=== PATIENT | female | born 1965 | race Caucasian/White ===

== ENCOUNTER 2018-10-03 19:56 | Emergency (ER) | payer OTHER ==
[~2018-10-03] VITALS: Ht 160 cm; Wt 91.0 kg
[2018-10-03] MEDS ORDERED: ONDANSETRON HCL 4MG TABLET PO ONE (21:45)
[2018-10-03] MEDS ORDERED: HYDROCODONE/ACETAMINOPHEN 5/325MG TABLET PO ONE (21:45)
[2018-10-03 23:12] VITALS: BP 134/81
== END 2018-10-03 23:12 | disposition home or self-care (01) ==
LOC: ER 21:52
DX: M25.531 Pain in right wrist (principal); W01.0XXA Fall on same level from slipping, tripping and stumbling without subsequent striking against object, initial encounter; Y93.89 Activity, other specified; Y92.018 Other place in single-family (private) house as the place of occurrence of the external cause
CPT/HCPCS: 29125; 73110; 99283; Q0162